=== PATIENT | female | born 1955 | race Caucasian/White ===

== ENCOUNTER 2016-07-15 10:46 | Emergency (ER) | payer OTHER ==
[2016-07-15 11:05] VITALS: RESP 16
--- NOTE | 2016-07-15 11:28 | UCPHY ---
H & P Time Seen by Provider: 07/15/16 11:25 Patient Type: New HPI/ROS: 61-year-old female presents complaining of tripped and hit her head on the corner of a table. This happened last night. She continues to have headache and nausea. She denies midline neck pain, numbness or tingling in extremities, no loss of bowel or bladder control. Review of systems As per HPI General no fever no chills no weakness HEENT no eye pain no eye discharge. No eye redness, no sore throat Respiratory no cough, no shortness of breath Cardiac no chest pain, no peripheral edema GI no abdominal pain, no diarrhea, no constipation, positive nausea, no vomiting no flank pain, no hematuria, no dysuria Musculoskeletal no myalgias, no joint pain Heme no easy bruising, no easy bleeding Endo no polyuria, no polydipsia Skin no rashes, no pruritus Neuro no syncope, no dizziness, positive headaches Psych is no suicidal ideation, no homicidal ideation Past Medical/Surgical History: depression Social History: alcohol socially, denies drug use Smoking Status: Former smoker Physical Exam: 61-year-old female alert and oriented in moderate distress secondary to right forehead pain, nontoxic appearance, afebrile normocephalic, right forehead hematoma with small linear abrasion extraocular muscles intact, anicteric no hemotympanum no [place]und[place] neck supple no midline tenderness lungs clear to auscultation bilaterally Heart regular rate and rhythm without murmurs rubs or gallop Abdomen normoactive bowel sounds soft Extremities no cyanosis clubbing or edema neuro alert and oriented, cranial nerves intact, motor and sensory intact, gait intact Constitutional: Initial Vital Signs Temperature (C) 37.1 C 07/15/16 11:01 Heart Rate 73 07/15/16 11:01 Respiratory Rate 16 07/15/16 11:01 Blood Pressure 134/55 H 07/15/16 11:01 O2 Sat (%) 95 07/15/16 11:01 O2 Delivery Mode Room Air Allergies/Adverse Reactions: No Known Allergies Allergy (Verified 07/15/16 11:05) Home Medications: Medication Instructions Recorded LAMICTAL ODT 11/27/09 LEXAPRO 11/27/09 Hydrocodone/APAP 5/325 [[place] 1 - 2 tab PO Q4-6PRN #14 tab 07/02/12 5/325 (*)] Ibuprofen [Motrin (*)] 600 mg PO Q6PRN PRN #20 tab 07/02/12 Oseltamivir Phosphate [Tamiflu 75 75 mg PO BID #10 cap 07/02/12 mg (RX)] Ondansetron Odt [Zofran Odt 4 mg 4 mg PO Q4 PRN #20 tab 07/03/12 (RX)] oxyCODONE/APAP 5/325 [Percocet 1 - 2 tab PO Q4-6PRN PRN #14 tab 07/03/12 5/325 (RX)] oxyCODONE/APAP 5/325 [Percocet 1 - 2 tab PO Q6H PRN #20 tab 07/15/16 5/325 (*)] Medical Decision Making - Diagnostics Imaging: CT brain negative for intracranial hemorrhage ED Course/Re-evaluation: patient seen and evaluated for fall yesterday with right forehead hematoma now with headache and nausea CT head negative physical exam significant for right forehead hematoma, neurologically intact impression right forehead hematoma concussion plan discharge Percocet p.r.n. severe pain follow-up primary care physician Departure - Departure Disposition: Home, Routine, Self-Care Clinical Impression: Concussion, Traumatic hematoma of forehead Condition: Good Instructions: Concussion (ED), Facial Contusion (ED) Referrals: Poly Graham MD [Primary Care Provider] - As per Instructions Prescriptions: oxyCODONE/APAP 5/325 [Percocet 5/325 (*)] 1 - 2 tab PO Q6H PRN #20 tab PRN Reason: Pain, Severe - PQRS PQRS Measurement: Not applicable
--- NOTE | 2016-07-15 12:08 | CT ---
CT Scan of the Head (Without Contrast) Clinical Indications: 61-year-old female who fell last night, hitting the right side of her forehead on the corner of a table and now complaining of a headache and nausea. The patient has felt dazed, b ut denies any loss of consciousness. Technique: Axial CT images were acquired from the foramen magnum through the skull vertex, without i ntravenous contrast. Soft tissue, subdural, and bone windows were reviewed on the computer workstati on. Images were reformatted at 5.0 and 1.25 mm increments, and are reformatted in sagittal and coron al planes. DFOV is 25.0 cm. Dose reduction techniques were utilized. Comparison Study: None. Findings: There are no mass lesions identified, and there is no evidence of an acute or subacute intr acranial hemorrhage, or an acute infarct. The ventricles and subarachnoid spaces are normal in size for this age group. 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 This has a characteristic ovoid shape which parallel s the long axis of the right temporal lobe and choroid fissure on sagittal series 400, image 36. The bone windows reveal no sign of a fracture. There is mild hyperostosis frontalis internus, a normal a natomic variant. There is some mild right frontal scalp swelling. The mastoid air cells are free of f luid. The left maxillary sinus is completely opacified, and there is some central calcification and m ild osseous thickening, suggesting that this likely represents a chronic sinusitis. There is no osseo us erosion. The frontal, ethmoid, sphenoid, and right maxillary sinuses are patent. The craniocervica l junction, pineal gland, sella turcica, and the orbits appear normal. If there is continuing clinica l concern regarding the patient's symptoms, MR imaging could be considered, if otherwise not contrain dicated. Impression: 1. There is no acute intracranial abnormality. 2. Mild right frontal scalp swelling. 3. Chronic left maxillary sinusitis. Results were called to Dr. Fiordaliza Thomas. A test result has been communicated to a licensed care provider and documented in [employer], 12:03:34 P M, 07/15/2016, [employer] Message ID [id number].
[2016-07-15 12:34] VITALS: BP 131/71; PULSE 69; TEMP 97.5; O2SAT 97
== END 2016-07-15 12:34 | disposition home or self-care (01) ==
LOC: CED 10:46
DX: S06.0X9A Concussion with loss of consciousness of unspecified duration, initial encounter (principal); S00.83XA Contusion of other part of head, initial encounter; W22.8XXA Striking against or struck by other objects, initial encounter; Z87.891 Personal history of nicotine dependence
CPT/HCPCS: 70450-PO; 99203-PO; G0463-PO

== ENCOUNTER → 2016-07-18 | Outpatient (CLI) | payer OTHER ==
--- NOTE | 2016-07-18 16:26 | MA ---
Screening Digital Mammogram Clinical Indications: Routine screening. Technique: Standard cephalocaudal and mediolateral oblique projections are obtained. This examinati on is [facility]. Comparison: July 31, 2015; July 05, 2014; and studies dating back to January 12, 2008. Breast density: B; There are scattered areas of fibroglandular density. Findings: CAD was reviewed. No suspicious findings are identified. There are no new masses, new clus ters of microcalcifications, or significant axillary lymphadenopathy. Impression: Negative mammogram. BI-RADS 1. Recommendation: Routine screening is recommended in one year. [facility] will send a result letter to the patient. Negative mammography should not preclude additional workup of a clinically suspicious finding. The patient's information is entered into a reminder system with a target due date for her next mammo gram.
== END ==
LOC: FIMAGING 10:34
DX: Z12.31 Encounter for screening mammogram for malignant neoplasm of breast (principal)
CPT/HCPCS: G0202

== ENCOUNTER → 2017-08-20 | Outpatient (CLI) | payer OTHER | LOC: FIMAGING 16:57 | PROVIDERS: ATTEND Physician Assistant | DX: M79.604 Pain in right leg (principal) ==

== ENCOUNTER → 2017-09-03 | Outpatient (CLI) | payer OTHER | LOC: BMCIMAGING 10:21 | PROVIDERS: ATTEND Family Medicine | DX: J98.4 Other disorders of lung (principal) ==

== ENCOUNTER → 2017-10-02 | Outpatient (CLI) | payer OTHER | LOC: FIMAGING 13:05 | PROVIDERS: ATTEND Family Medicine | DX: N60.81 Other benign mammary dysplasias of right breast (principal); N60.82 Other benign mammary dysplasias of left breast ==

== ENCOUNTER → 2018-10-19 | Outpatient (CLI) | payer OTHER | LOC: FIMAGING 13:14 | PROVIDERS: ATTEND Family Medicine | DX: Z12.31 Encounter for screening mammogram for malignant neoplasm of breast (principal) ==